=== PATIENT | male | born 1960 | race American Indian/Alaskan Native ===

== ENCOUNTER 2019-09-03 18:57 | Emergency (ER) | payer MEDICAID, OTHER ==
[2019-09-03] MEDS ORDERED: Ertapenem 1 GM in Sodium Chloride 0.9% 100 ML IV ONE (19:43)
[2019-09-03] MEDS ORDERED: HYDROmorphone 0.5 MG/0.5 ML Syringe IVPUSH ONE (19:43)
--- NOTE | 2019-09-03 20:12 | EDM.PDOC ---
ED HPI GENERAL MEDICAL PROBLEM - General Chief Complaint: General Stated Complaint: PAIN IN RIGHT KNEE Time Seen by Provider: 09/03/19 19:30 Source of Information: Reports: Patient History Limitations: Reports: No Limitations - History of Present Illness INITIAL COMMENTS - FREE TEXT/NARRATIVE: 58-year-old male diabetic, with a history of a right above-the- knee amputation has developed some pain, redness, and drainage from the anterior aspect of the stump over the last 4 days. No fevers or chills. No other complaints. Onset: Gradual Duration: Day(s): (4 days) Location: Reports: Lower Extremity, Right Associated Symptoms: Reports: No Other Symptoms Right Knee Pain Score (Numeric/FACES): 10 - Related Data Allergies Allergy/AdvReac Type Severity Reaction Status Date / Time No Known Allergies Allergy Verified 09/03/19 19:15 Home Meds: Home Meds DULoxetine [Cymbalta] 30 mg PO DAILY 09/03/19 [History] Gabapentin [Neurontin] 1,200 mg PO DAILY 09/03/19 [History] Insulin Aspart [NovoLOG] 09/03/19 [History] Insulin Detemir [Levemir Flextouch] 42 units SUBCNJ ACBREAKFAST 09/03/19 [ History] Lisinopril [Zestril] 10 mg PO DAILY 09/03/19 [History] Simvastatin 40 mg PO DAILY 09/03/19 [History] allopurinoL [Zyloprim] 100 mg PO BID 09/03/19 [History] traMADol HCl [Tramadol HCl] 50 mg PO ASDIRECTED PRN 09/03/19 [History] Past Medical History Cardiovascular History: Reports: High Cholesterol, Hypertension Musculoskeletal History: Reports: Amputation Neurological History: Reports: Neuropathy, Diabetic Endocrine/Metabolic History: Reports: Diabetes, Type II Social & Family History - Tobacco Use Smoking Status *Q: Heavy Tobacco Smoker Years of Tobacco use: 30 Packs/Tins Daily: 1 - Caffeine Use Caffeine Use: Reports: Coffee, Soda - Recreational Drug Use Recreational Drug Use: No ED ROS GENERAL - Review of Systems Review Of Systems: See Below Constitutional: Denies: Fever, Chills Respiratory: Denies: Shortness of Breath Cardiovascular: Denies: Chest Pain GI/Abdominal: Denies: Nausea, Vomiting Musculoskeletal: Reports: Leg Pain Skin: Reports: Erythema (Right distal lower extremity at the amputation.) ED EXAM, GENERAL - Physical Exam Exam: See Below Exam Limited By: No Limitations General Appearance: Alert, No Apparent Distress Respiratory/Chest: No Respiratory Distress, Lungs Clear Cardiovascular: Regular Rate, Rhythm. No: Tachycardia Extremities: Other (Exam of the right lower extremity reveals a closed above-the -knee amputation. There is erythema and a superficial healing scab on the anterior aspect. No open ulcerations, but some drainage is coming through the central area of the scalp. This was wiped clean, a small amount of pressure applied and a fairly significant amount of purulent discharge was expelled from the area. There was some fluctuance. A culture was taken.) Course - Vital Signs Last Recorded V/S: Last Vital Signs Temp 96.6 F 09/03/19 19:21 Pulse 71 09/03/19 19:21 Resp 16 09/03/19 19:21 BP 115/75 09/03/19 19:21 Pulse Ox 99 09/03/19 19:21 - Orders/Labs/Meds Orders: Active Orders 24 hr Category Date Time Status CULTURE WOUND + SMEAR [RM] Stat Lab 09/03/19 19:52 Results DME for Discharge [COMM] Stat Oth 09/03/19 20:42 Ordered Meds: Medications Discontinued Medications Generic Name Dose Route Start Last Admin Trade Name Salud PRN Reason Stop Dose Admin Hydromorphone HCl 0.5 mg 09/03/19 19:43 09/03/19 19:59 Dilaudid IVPUSH 09/03/19 19:44 0.5 mg ONETIME ONE Administration Ertapenem 1 gm/ Sodium 100 mls @ 200 mls/hr 09/03/19 19:43 09/03/19 20:03 Chloride IV 09/03/19 20:12 200 mls/hr ONETIME ONE Administration - Re-Assessments/Exams Free Text/Narrative Re-Assessment/Exam: 09/03/19 20:09 This patient obviously has a subcutaneous abscess developing on the stump on the right lower extremity. It appears to be very focal, he is stable and afebrile. Pressure was applied to the area until no further exudate was expelled, the wound was cleaned and redressed and he was given 1 g of Invanz IV. He was also given 0.5 mg of IV Dilaudid. He will return tomorrow morning for a second dose of IV antibiotic and reassessment, he may be able to be transitioned to an oral antibiotic at that time. Dr. Reid hopefully will be present to give his opinion as well. Surgical exploration may still be needed. He was also discharged with 10 hydrocodone for extra pain control. He was also given crutches so he would not have to replace his prosthesis or bear any weight on the infected area 09/03/19 20:43 Patient tolerated the IV antibiotic well and will be discharged and rechecked tomorrow afternoon. Departure - Departure Time of Disposition: 20:56 Disposition: Home, Self-Care 01 Clinical Impression: Soft tissue abscess - Discharge Information Instructions: Skin Abscess, [id number] Referrals: PCP,None [Primary Care Provider] - Forms: ED Department Discharge Care Plan Goals: Avoid weightbearing on the right infected leg, warm compresses on the area may be helpful and recheck tomorrow afternoon at the hospital for a second dose of antibiotic and surgical consultation. Continue your regular medications and use hydrocodone instead of tramadol for pain. Sepsis Event Note - Evaluation Sepsis Screening Result: No Definite Risk - Focused Exam Vital Signs: Vital Signs Temp Pulse Resp BP Pulse Ox 09/03/19 19:21 96.6 F 71 16 115/75 99 09/03/19 19:20 96.6 F 71 16 115/75 99 Date Exam was Performed: 09/03/19 Time Exam was Performed: 22:33 - My Orders Last 24 Hours: My Active Orders 09/03/19 19:52 CULTURE WOUND + SMEAR [RM] Stat 09/03/19 20:42 DME for Discharge [COMM] Stat - Assessment/Plan Last 24 Hours: My Active Orders 09/03/19 19:52 CULTURE WOUND + SMEAR [RM] Stat 09/03/19 20:42 DME for Discharge [COMM] Stat
== END 2019-09-03 20:56 | disposition home or self-care (01) ==
LOC: JP.ED 18:57
DX: Z89.611 Acquired absence of right leg above knee (principal); E78.00 Pure hypercholesterolemia, unspecified; I10 Essential (primary) hypertension; E11.40 Type 2 diabetes mellitus with diabetic neuropathy, unspecified; F17.200 Nicotine dependence, unspecified, uncomplicated; Z79.4 Long term (current) use of insulin; Z79.899 Other long term (current) drug therapy
CPT/HCPCS: 87070; 87077; 87186; 87205; 96365; 96375; 99283; 99284; J1170; J1335; J7050

== ENCOUNTER 2019-09-04 13:05 | Emergency (ER) | payer OTHER ==
[2019-09-04] MEDS ORDERED: Ertapenem 1 GM in Sodium Chloride 0.9% 100 ML IV ONE (14:03)
[2019-09-04] MEDS: Ertapenem 1 GM in Sodium Chloride 0.9% 100 ML IV ONE (14:23)
[2019-09-04] MEDS ORDERED: HYDROmorphone 0.5 MG/0.5 ML Syringe IVPUSH ONE (14:54)
--- NOTE | 2019-09-04 15:31 | EDM.PDOC ---
ED HPI GENERAL MEDICAL PROBLEM - General Chief Complaint: Wound Recheck Stated Complaint: IV Time Seen by Provider: 09/04/19 15:28 Source of Information: Reports: Patient History Limitations: Reports: No Limitations - History of Present Illness INITIAL COMMENTS - FREE TEXT/NARRATIVE: pt arrived for a recheck on the infected stump He still has drainage fom the wouind. . It still is mildly red but not real hot. Onset: Gradual Duration: Hour(s): Location: Reports: Lower Extremity, Right, Other ( below the knee amputation) Associated Symptoms: Reports: No Other Symptoms, Other (pt does not have a fever. ) Right Lower Leg Pain Score (Numeric/FACES): 7 - Related Data Allergies Allergy/AdvReac Type Severity Reaction Status Date / Time No Known Allergies Allergy Verified 09/04/19 13:51 Home Meds: Home Meds DULoxetine [Cymbalta] 30 mg PO DAILY 09/03/19 [History] Gabapentin [Neurontin] 1,200 mg PO DAILY 09/03/19 [History] Insulin Aspart [NovoLOG] 0 - 15 units SUBCUT TIDMEALS 09/03/19 [History] Insulin Detemir [Levemir Flextouch] 42 units SUBCNJ ACBREAKFAST 09/03/19 [ History] Lisinopril [Zestril] 10 mg PO DAILY 09/03/19 [History] Simvastatin 40 mg PO DAILY 09/03/19 [History] allopurinoL [Zyloprim] 100 mg PO BID 09/03/19 [History] traMADol HCl [Tramadol HCl] 50 mg PO ASDIRECTED PRN 09/03/19 [History] Past Medical History Cardiovascular History: Reports: High Cholesterol, Hypertension Musculoskeletal History: Reports: Amputation Neurological History: Reports: Neuropathy, Diabetic Endocrine/Metabolic History: Reports: Diabetes, Type II - Past Surgical History Musculoskeletal Surgical History: Reports: Amputation Social & Family History - Tobacco Use Smoking Status *Q: Current Every Day Smoker Years of Tobacco use: 40 Packs/Tins Daily: 0.5 - Caffeine Use Caffeine Use: Reports: Coffee, Soda, Tea - Recreational Drug Use Recreational Drug Use: No ED ROS GENERAL - Review of Systems Review Of Systems: See Below HEENT: Reports: No Symptoms Respiratory: Reports: No Symptoms Cardiovascular: Reports: No Symptoms Endocrine: Reports: No Symptoms GI/Abdominal: Reports: No Symptoms : Reports: No Symptoms Musculoskeletal: Reports: Other ( roland from the stump site. ) ED EXAM, SKIN/RASH Exam: See Below Text/Narrative:: pt is here for a recheck on the stump This seems slightly better. He did have an xray today and the bone looks good. u Exam Limited By: No Limitations General Appearance: Alert, Moderate Distress Ears: Normal TMs Nose: Normal Inspection Throat/Mouth: Normal Inspection Head: Atraumatic Neck: Normal Inspection Respiratory/Chest: No Respiratory Distress Cardiovascular: Regular Rate, Rhythm Extremities: Other (pt has slight redness. He still has some drainage. The wound culture is not back. Dr Reid is not here this week. Dr Dodd was unale to see him. He was given the Invanc and he will rtc tomorrow at 6 45 and he will see Dr Hill. He was given some gas card for travel. ) Neurological: Alert, Oriented Course - Vital Signs Last Recorded V/S: Last Vital Signs Temp 36.7 C 09/04/19 13:56 Pulse 77 09/04/19 13:56 Resp 16 09/04/19 13:56 BP 167/67 H 09/04/19 13:56 Pulse Ox 99 09/04/19 13:56 - Orders/Labs/Meds Meds: Medications Discontinued Medications Generic Name Dose Route Start Last Admin Trade Name Salud PRN Reason Stop Dose Admin Hydrocodone Bitart/Acetaminophen 1 tab 09/04/19 15:43 [place] 325-5 Mg PO 09/04/19 15:44 ONETIME ONE Hydromorphone HCl 0.5 mg 09/04/19 14:54 09/04/19 15:09 Dilaudid IVPUSH 09/04/19 14:55 0.5 mg ONETIME ONE Administration Ertapenem 1 gm/ Sodium 100 mls @ 200 mls/hr 09/04/19 14:15 09/04/19 14:23 Chloride IV 09/04/19 14:44 200 mls/hr ONETIME ONE Administration - Re-Assessments/Exams Free Text/Narrative Re-Assessment/Exam: 09/04/19 15:39 Invanc 1gm was given to the pt Departure - Departure Time of Disposition: 15:40 Disposition: Home, Self-Care 01 Condition: Fair Clinical Impression: Infection of amputation stump - Discharge Information Instructions: Stump and Prosthesis Care Referrals: PCP,None [Primary Care Provider] - Forms: ED Department Discharge Care Plan Goals: rtc tomorrow am to see Dr Wheeler, He will have another gm of Invanc. The culture will be back by that time. Sepsis Event Note - Evaluation Sepsis Screening Result: No Definite Risk - Focused Exam Date Exam was Performed: 09/08/19 Time Exam was Performed: 07:41
[2019-09-04] MEDS ORDERED: Acetaminophen/HYDROcodone 325-5 MG Tab PO ONE (15:43)
--- NOTE | 2019-09-04 16:26 | CRLCR ---
Indication: Infection, rule out osteomyelitis Technique: Two views of the right knee Comparison: None Findings/Impression: 1. There is prior below-knee amputation. Soft tissue edema is noted at the stump, compatible with cellulitis. 2. No lytic or destructive changes are appreciated in the remnant tibia and fibula. There is no subcutaneous emphysema. 3. Tricompartmental degenerative changes are noted in the knee. The visualized distal femur is intact. Dictated by Delfina Wolfe MD @ Sep 04 2019 4:20PM Signed by Dr. Delfina Wolfe @ Sep 04 2019 4:24PM
== END 2019-09-04 15:55 | disposition home or self-care (01) ==
LOC: JP.ED 13:05
DX: T87.43 Infection of amputation stump, right lower extremity (principal); I10 Essential (primary) hypertension; E11.40 Type 2 diabetes mellitus with diabetic neuropathy, unspecified; E78.00 Pure hypercholesterolemia, unspecified; F17.210 Nicotine dependence, cigarettes, uncomplicated; Z79.899 Other long term (current) drug therapy; Z79.4 Long term (current) use of insulin
CPT/HCPCS: 73560; 96365; 96375; 99283; J1170; J1335; J7050